=== PATIENT | male | born 1950 | race Caucasian/White ===

== ENCOUNTER 2023-05-22 14:33 | Emergency (ER) | payer MEDICARE ==
[~2023-05-22] VITALS: Ht 180.3 cm; Wt 76.2 kg
[2023-05-22 16:22] LABS: BASOPHILS 0.7 % (0-2); EOSINOPHILS 0.5 % (0-6); HEMATOCRIT 52.4 % (35.0-50.0); HEMOGLOBIN 17.6 g/dL (12.0-18.0); MCH 31.6 (27-36); MCHC 33.6 g/dl (30-36); MCV 94.1 fl (81-99); MONOCYTES 6.7 % (0-12); NEUTROPHILS 74.1 % (39-80); PLATELET COUNT 147 K/uL (140-440); RBC 5.57 M/ul (4.3-5.7); RDW 14.5 (10.5-15.0)
[2023-05-22 16:43] LABS: ALBUMIN 3.6 g/dL (3.4-5.0); ALCOHOL, MEDICAL <3 ng/dL (<3); ALKALINE PHOSPHATASE 61 U/L (46-116); ALT (SGPT) 24 U/L (14-59); ANION GAP 15.4 (7-21); AST (SGOT) 41 U/L (15-37); BILIRUBIN, TOTAL 0.9 ng/dL (0.2-1.0); BUN/CREATININE RATIO 18.47 (6.0-28.6); CALCIUM 9.1 mg/dL (8.5-10.1); CARBON DIOXIDE 26 mmol/L (21-32); CHLORIDE 102 mmol/L (98-107); CREATININE, SERUM 0.92 mg/dL (0.70-1.30); GLOMERULAR FILTRATION RATE,EST 89 mL/min (>60); POTASSIUM 4.4 mmol/L (3.5-5.1); PROTEIN, TOTAL 7.6 g/dL (6.4-8.2); UREA NITROGEN 17 mg/dL (7-18)
[2023-05-22 16:45] LABS: BILIRUBIN, URINE POSITIVE (negative); BLOOD/HGB, URINE TRACE-I (Negative); KETONE, URINE TRACE (Negative); LEUK ESTERASE, URINE NEGATIVE (negative); NITRITE, URINE NEGATIVE (negative)
[2023-05-22 16:54] LABS: BACTERIA, URINE RARE /hpf (negative); CASTS, URINE NONE SEEN \\lpf; CRYSTALS, URINE NONE SEEN (0-1+); EPITHELIAL CELLS, URINE SQUAMOUS 1+ /lpf (0-1+); RED BLOOD CELLS, URINE 0-1 /hpf (0-5)
[2023-05-22 16:55] LABS: COLLECTION TYPE, URINE VOID; REFLEX CULTURE, URINE No (No)
[2023-05-22 18:29] VITALS: BP 174/95
== END 2023-05-22 18:31 | disposition home or self-care (01) ==
LOC: ED 14:33
PROVIDERS: Family Medicine
DX: F03.90 Unspecified dementia, unspecified severity, without behavioral disturbance, psychotic disturbance, mood disturbance, and anxiety (principal); I10 Essential (primary) hypertension; I25.2 Old myocardial infarction; Z95.5 Presence of coronary angioplasty implant and graft
CPT/HCPCS: 36415; 80053; 81001; 85025; 99284; G0480

== ENCOUNTER 2025-02-23 13:43 | Emergency (ER) | payer MEDICARE, OTHER ==
[~2025-02-23] VITALS: Ht 180.3 cm; Wt 68.1 kg
[2025-02-23] MEDS ORDERED: LOSARTAN POTASS50 MG PO (13:54)
[2025-02-23 14:00] LABS: BASOPHILS 0.5 % (0.2-1.2); EOSINOPHILS 0.2 % (0.8-7.0); LYMPHOCYTES 11.4 % (21.8-53.1); MCH 30.2 PG (25.7-32.2); MCHC 33.7 g/dL (32.3-36.5); MCV 89.6 fL (79.0-92.2); MONOCYTES 5.4 % (5.3-12.2); NEUTROPHILS 82.2 % (34.0-67.9); RBC 5.59 M/uL (4.63-6.08)
[2025-02-23 14:49] LABS: ALT (SGPT) 23.0 U/L (14-59); AST (SGOT) 44.0 U/L (15-37); GLOMERULAR FILTRATION RATE,EST 96.0 mL/min (>60); PROTEIN, TOTAL 7.5 g/dL (6.4-8.2); UREA NITROGEN 13.0 mg/dL (7-18)
[2025-02-23] MEDS ORDERED: SODIUM CHLORIDE 0.9% 1,000 ML IV PRN (15:15)
[2025-02-23 16:45] LABS: BLOOD/HGB, URINE SMALL (Negative); KETONE, URINE NEGATIVE (Negative); LEUK ESTERASE, URINE NEGATIVE (negative); NITRITE, URINE NEGATIVE (negative)
[2025-02-23 16:53] LABS: EPITHELIAL CELLS, URINE SQUAMOUS 1+ /lpf (0-1+)
[2025-02-23 16:55] LABS: BACTERIA, URINE NONE SEEN /hpf (negative); CASTS, URINE NONE SEEN \\lpf; CRYSTALS, URINE NONE SEEN (0-1+); REFLEX CULTURE, URINE No (No)
[2025-02-23 18:46] VITALS: BP 143/71
--- NOTE | 2025-02-24 21:33 | EKG ---
[facility] [address] [facility] [place] [address] Signed Sinus rhythm with premature atrial complexes with aberrant conduction Left axis deviation Nonspecific intraventricular block Inferior infarct , age undetermined T wave abnormality, consider lateral ischemia Abnormal ECG No previous ECGs available Confirmed by Jonah Dumont MD () on 02/24/2025 9:33:20 PM Electronically Signed By: JONAH DUMONT MD 02/24/25 213 PATIENT NAME: FAISAL FIGUEROA JR Electrocardiogram DATE OF : 52 PHYSICIAN: JONAH DUMONT MD REPORT #: [id number] REPORT IS CONFIDENTIAL AND NOT TO BE RELEASED WITHOUT AUTHORIZATION
== END 2025-02-23 19:10 | disposition home or self-care (01) ==
LOC: ED 13:43
PROVIDERS: Emergency Medicine
DX: R53.1 Weakness (principal); I10 Essential (primary) hypertension
CPT/HCPCS: 36415; 80053; 81001; 83735; 84484; 85025; 93005; 93010; 99285; J7030

== ENCOUNTER 2025-03-27 11:16 | Emergency (ER) | payer OTHER, MEDICARE ==
[~2025-03-27] VITALS: Ht 180.3 cm; Wt 68.0 kg
--- OUTSIDE RECORDS SUMMARY | ~2025-03-27 | XMS | Continuity of Care Document ---
Demographics + + + | Address | [address] | | | [place] [address] | + + + | Preferred Language | Unknown | + + + | Marital Status | | + + + | Jehovah'S Witness Affiliation | Unknown | + + + | Race | White | + + + | Ethnic Group | Not or | + + + Author + + + | Author | [facility] | + + + | Organization | [facility] | + + + | Address | [address] | | | [place] [address] | + + + | Phone | | + + + Care Team Providers + + + + | Care Rn Pediatric Name | Role | Phone | + + + + Unavailable | Unavailable | + + + + Unavailable | Unavailable | + + + + Allergies No information. Encounters No information. Functional Status No information. Immunizations No information. Medications + + + + | date | description | facility | + + + + | (no date) | [facility] | [facility] | | | | [facility] | + + + + Problems + + + + | date | description | facility | + + + + | 2025-02-23 00:00 | Weakness | [facility] | | | | [facility] | + + + + Procedures No information. Results/Labs +--------+--------+ +---------+--------+---------+ | test | date | facility | value | unit | notes | +--------+--------+ +---------+--------+---------+ + + | Result panel 1 | + + + + + +-------+ + + | Glucose | 2025-02-23 | | 106 | (missing) | (missing) | | Bld-Alex | 13:53:08 | [facility] | | | | + + + +-------+ + + + + | Result panel 2 | + + + + + +---------+ + + | WBC # Bld | 2025-02-23 | | 12.32 | (missing) | (missing) | | Auto | 13:55:08 | [facility] | | | | + + + +---------+ + + + + | Result panel 3 | + + + + + +--------+ + + | Lymphocytes | 2025-02-23 | | 11.4 | (missing) | (missing) | | NFr Bld | 13:55:08 | [facility] | | | | | Auto | [facility] | | | | + + + +--------+ + + + + | Result panel 4 | + + + + + +-------+ + + | Monocytes | 2025-02-23 | | 5.4 | (missing) | (missing) | | NFr Bld Auto | 13:55:08 | [facility] | | | | + + + +-------+ + + + + | Result panel 5 | + + + + + +-------+ + + | Eosinophil | 2025-02-23 | | 0.2 | (missing) | (missing) | | NFr Bld Auto | 13:55:08 | [facility] | | | | + + + +-------+ + + + + | Result panel 6 | + + + + + +-------+ + + | Basophils | 2025-02-23 | | 0.5 | (missing) | (missing) | | NFr Bld Auto | 13:55:08 | [facility] | | | | + + + +-------+ + + + + | Result panel 7 | + + + + + +--------+ + + | RBC # Bld | 2025-02-23 | | 5.59 | (missing) | (missing) | | Auto | 13:55:08 | [facility] | | | | + + + +--------+ + + + + | Result panel 8 | + + + + + +--------+ + + | Hgb | 2025-02-23 | | 16.9 | (missing) | (missing) | | Bld-Alex | 13:55:08 | [facility] | | | | + + + +--------+ + + + + | Result panel 9 | + + + + + +--------+ + + | Hct VFr.DF | 2025-02-23 | | 50.1 | (missing) | (missing) | | Bld Auto | 13:55:08 | [facility] | | | | + + + +--------+ + + + + | Result panel 10 | + + + + + +--------+ + + | RBC Auto | 2025-02-23 | | 89.6 | (missing) | (missing) | | | 13:55:08 | [facility] | | | | + + + +--------+ + + + + | Result panel 11 | + + + + + +--------+ + + | MCH RBC Qn | 2025-02-23 | | 30.2 | (missing) | (missing) | | Auto | 13:55:08 | [facility] | | | | + + + +--------+ + + + + | Result panel 12 | + + + + + +--------+ + + | MCHC RBC | 2025-02-23 | | 33.7 | (missing) | (missing) | | Auto-EntMCnc | 13:55:08 | [facility] | | | | + + + +--------+ + + + + | Result panel 13 | + + + + + +-------+ + + | Platelet # | 2025-02-23 | | 173 | (missing) | (missing) | | Bld Auto | 13:55:08 | [facility] | | | | + + + +-------+ + + + + | Result panel 14 | + + + + + +--------+ + + | Neutrophils | 2025-02-23 | | 82.2 | (missing) | (missing) | | NFr Bld | 13:55:08 | [facility] | | | | | Auto | [facility] | | | | + + + +--------+ + + + + | Result panel 15 | + + + + + +-------+---------+ + | Glucose | 2025-02-23 | | 111 | mg/dL | (missing) | | SerPl-mCnc | 14:17:08 | [facility] | | | | + + + +-------+---------+ + + + | Result panel 16 | + + + + + +------+---------+ + | BUN | 2025-02-23 | | 13 | mg/dL | (missing) | | SerPl-mCnc | 14:17:08 | [facility] | | | | + + + +------+---------+ + + + | Result panel 17 | + + + + + +--------+---------+ + | Creat | 2025-02-23 | | 0.74 | mg/dL | (missing) | | SerPl-mCnc | 14:17:08 | [facility] | | | | + + + +--------+---------+ + + + | Result panel 18 | + + + + + +------+ + + | eGFRcr | 2025-02-23 | | 96 | (missing) | (missing) | | SerPlBld | 14:17:08 | [facility] | | | | | CKD-EPI 2020 | [facility] | | | | + + + +------+ + + + + | Result panel 19 | + + + + + +---------+ + + | BUN/Creat | 2025-02-23 | | 17.56 | (missing) | (missing) | | SerPl | 14:17:08 | [facility] | | | | + + + +---------+ + + + + | Result panel 20 | + + + + + +-------+ + + | Sodium | 2025-02-23 | | 143 | (missing) | (missing) | | SerPl-sCnc | 14:17:08 | [facility] | | | | + + + +-------+ + + + + | Result panel 21 | + + + + + +-------+ + + | Potassium | 2025-02-23 | | 3.9 | (missing) | (missing) | | SerPl-[facility] | 14:17:08 | [facility] | | | | + + + +-------+ + + + + | Result panel 22 | + + + + + +-------+ + + | Chloride | 2025-02-23 | | 103 | (missing) | (missing) | | SerPl-sCnc | 14:17:08 | [facility] | | | | + + + +-------+ + + + + | Result panel 23 | + + + + + +------+ + + | CO2 | 2025-02-23 | | 30 | (missing) | (missing) | | SerPl-sCnc | 14:17:08 | [facility] | | | | + + + +------+ + + + + | Result panel 24 | + + + + + +--------+ + + | Anion Gap | 2025-02-23 | | 13.9 | (missing) | (missing) | | SerPl | 14:17:08 | [facility] | | | | | Calculated.4 | [facility] | [facility] | | | | + + + +--------+ + + + + | Result panel 25 | + + + + + +-------+---------+ + | Calcium | 2025-02-23 | | 9.6 | mg/dL | (missing) | | SerPl-mCnc | 14:17:08 | [facility] | | | | + + + +-------+---------+ + + + | Result panel 26 | + + + + + +-------+---------+ + | Magnesium | 2025-02-23 | | 1.7 | mg/dL | (missing) | | SerPl-mCnc | 14:17:08 | [facility] | | | | + + + +-------+---------+ + + + | Result panel 27 | + + + + + +-------+ + + | Prot | 2025-02-23 | | 7.5 | (missing) | (missing) | | SerPl-mCnc | 14:17:08 | [facility] | | | | + + + +-------+ + + + + | Result panel 28 | + + + + + +-------+ + + | Albumin | 2025-02-23 | | 4.0 | (missing) | (missing) | | Gwendolyn-Alex | 14:17:08 | [facility] | | | | + + + +-------+ + + + + | Result panel 29 | + + + + + +-------+ + + | Globulin | 2025-02-23 | | 3.5 | (missing) | (missing) | | Ser-mCnc | 14:17:08 | [facility] | | | | + + + +-------+ + + + + | Result panel 30 | + + + + + +--------+ + + | | 2025-02-23 | | 1.14 | (missing) | (missing) | | Albumin/Glob | 14:17:08 | [facility] | | | | | SerPl | [facility] | | | | + + + +--------+ + + + + | Result panel 31 | + + + + + +-------+---------+ + | Bilirub | 2025-02-23 | | 0.8 | mg/dL | (missing) | | SerPl-mCnc | 14::08 | [facility] | | | | + + + +-------+---------+ + + + | Result panel 32 | + + + + + +------+ + + | AST | 2025-02-23 | | 44 | (missing) | (missing) | | SerPl-cCnc | 14:17:08 | [facility] | | | | + + + +------+ + + + + | Result panel 33 | + + + + + +------+ + + | ALT | 2025-02-23 | | 23 | (missing) | (missing) | | SerPl-cCnc | 14:17:08 | [facility] | | | | + + + +------+ + + + + | Result panel 34 | + + + + + +------+ + + | ALP | 2025-02-23 | | 74 | (missing) | (missing) | | SerPl-cCnc | 14:17:08 | [facility] | | | | + + + +------+ + + + + | Result panel 35 | + + + + + + + + + | Color Ur | 2025-02-23 | | YELLOW | (missing) | (missing) | | Auto | 16:41:08 | [facility] | | | | + + + + + + + + + | Result panel 36 | + + + + + +---------+ + + | Character | 2025-02-23 | | CLEAR | (missing) | (missing) | | Ur | 16:41:08 | [facility] | | | | + + + +---------+ + + + + | Result panel 37 | + + + + + + + + + | Glucose Ur | 2025-02-23 | | NEGATIVE | (missing) | (missing) | | Ql Strip | 16:41:08 | [facility] | | | | + + + + + + + + + | Result panel 38 | + + + + + + + + + | Bilirub Ur | 2025-02-23 | | NEGATIVE | (missing) | (missing) | | Ql Strip | 16:41:08 | [facility] | | | | + + + + + + + + + | Result panel 39 | + + + + + + + + + | Ketones Ur | 2025-02-23 | | NEGATIVE | (missing) | (missing) | | Ql Strip | 16:41:08 | [facility] | | | | + + + + + + + + + | Result panel 40 | + + + + + +---------+ + + | Sp Gr Ur | 2025-02-23 | | 1.025 | (missing) | (missing) | | Strip | 16:41:08 | [facility] | | | | | | | - | | | | | | | [facility] | | | | + + + +---------+ + + + + | Result panel 41 | + + + + + +---------+ + + | Michel Ur Ql | 2025-02-23 | | SMALL | (missing) | (missing) | | Strip | 16:41:08 | [facility] | | | | + + + +---------+ + + + + | Result panel 42 | + + + + + +-------+ + + | pH Ur Strip | 2025-02-23 | | 6.5 | (missing) | (missing) | | | 16:41:08 | [facility] | | | | + + + +-------+ + + + + | Result panel 43 | + + + + + +------+ + + | Prot Ur | 2025-02-23 | | 30 | (missing) | (missing) | | Strip-mCnc | 16:41:08 | [facility] | | | | + + + +------+ + + + + | Result panel 44 | + + + + + + + + + | | 2025-02-23 | | NORMAL | (missing) | (missing) | | Urobilinogen | 16:41:08 | [facility] | | | | | Ur | [facility]-m[facility]nc | | [facility] | | | | + + + + + + + + + | Result panel 45 | + + + + + + + + + | Nitrite Ur | 2025-02-23 | | NEGATIVE | (missing) | (missing) | | Ql Strip | 16:41:08 | [facility] | | | | + + + + + + + + + | Result panel 46 | + + + + + + + + + | Leukocyte | 2025-02-23 | | NEGATIVE | (missing) | (missing) | | esterase Ur | 16:41:08 | [facility] | | | | | Ql Strip | [facility] | | | | + + + + + + + + + | Result panel 47 | + + + + + +-------+ + + | RBC #/area | 2025-02-23 | | 0-1 | (missing) | (missing) | | UrnS HPF | 16:41:08 | [facility] | | | | + + + +-------+ + + + + | Result panel 48 | + + + + + +-------+ + + | WBC #/area | 2025-02-23 | | 0-1 | (missing) | (missing) | | UrnS HPF | 16:41:08 | [facility] | | | | + + + +-------+ + + + + | Result panel 49 | + + + + + + + + + | Epi Cells | 2025-02-23 | | SQUAMOUS 1+ | (missing) | (missing) | | #/area UrnS | 16:41:08 | [facility] | | | | | HPF [facility] | | | | + + + + + + + + + | Result panel 50 | + + + + + + + + + | Crystals | 2025-02-23 | | NONE SEEN | (missing) | (missing) | | UrnS Micro | 16:41:08 | [facility] | | | | + + + + + + + + + | Result panel 51 | + + + + + + + + + | Bacteria | 2025-02-23 | | NONE SEEN | (missing) | (missing) | | #/area UrnS | 16:41:08 | [facility] | | | | | HPF [facility] | | | | + + + + + + + + + | Result panel 52 | + + + + + + + + + | Casts | 2025-02-23 | | NONE SEEN | (missing) | (missing) | | #/area UrnS | 16:41:08 | [facility] | | | | | LPF [facility] | | | | + + + + + + + + + | Result panel 53 | + + + + + +------+ + + | Bacteria Ur | 2025-02-23 | | No | (missing) | (missing) | | Cult | 16:41:08 | [facility] | | | | + + + +------+ + + + + | Result panel 54 | + + + + + + + + + | Urn Spec | 2025-02-23 | | CLEAN CATCH | (missing) | (missing) | | Collect Meth | 16:41:08 | [facility] | | | | | Ur | | - | | | | | | | [facility] | | | | + + + + + + + + + | Result panel 55 | + + + + + +---------+ + + | Troponin I | 2025-02-23 | | 133.1 | (missing) | (missing) | | SerPl | 18:00:08 | [facility] | | | | | HS-mCnc [facility] | | | | + + + +---------+ + + Social History + + + + | date | description | facility | + + + + | (no date) | Unknown if ever smoked | [facility] | | | [facility] | + + + + Vital Signs + + + +---------+ | date | measurement | value | units | + + + +---------+ | 2025-02-23 00:00 | BMI | 20.9 | kg/m2 | + + + +---------+ | 2025-02-23 00:00 | BP_diastolic | 71 | mmHg | + + + +---------+ | 2025-02-23 00:00 | BP_systolic | 143 | mmHg | + + + +---------+ | 2025-02-23 00:00 | heart_rate | 62 | /min | + + + +---------+ | 2025-02-23 00:00 | height_metric | 180.34 | cm | + + + +---------+ | 2025-02-23 00:00 | height_standard | 71 | in | + + + +---------+ | 2025-02-23 00:00 | o2_saturation | 96 | % | + + + +---------+ | 2025-02-23 00:00 | respiration_rate | 17 | /min | + + + +---------+ | 2025-02-23 00:00 | | 98 | F | | | temperature_standar | | | | | d | | | + + + +---------+ | 2025-02-23 00:00 | weight_metric | 68.101 | kg | + + + +---------+ | 2025-02-23 00:00 | weight_standard | 150.137 | lb | + + + +---------+"
[~2025-03-27 11:16] MED LIST: LOSARTAN POTASS50 MG PO
[2025-03-27 12:14] LABS: BLOOD/HGB, URINE NEGATIVE (Negative); KETONE, URINE NEGATIVE (Negative); LEUK ESTERASE, URINE NEGATIVE (negative); NITRITE, URINE NEGATIVE (negative)
[2025-03-27 12:56] LABS: BASOPHILS 0.8 % (0.2-1.2); EOSINOPHILS 2.2 % (0.8-7.0); LYMPHOCYTES 28.6 % (21.8-53.1); MCH 30.9 PG (25.7-32.2); MCHC 33.7 g/dL (32.3-36.5); MCV 91.8 fL (79.0-92.2); MONOCYTES 8.5 % (5.3-12.2); NEUTROPHILS 59.7 % (34.0-67.9); RBC 5.14 M/uL (4.63-6.08)
[2025-03-27 13:24] LABS: ALT (SGPT) 17.0 U/L (14-59); AST (SGOT) 17.0 U/L (15-37); GLOMERULAR FILTRATION RATE,EST 96.0 mL/min (>60); PROTEIN, TOTAL 7.3 g/dL (6.4-8.2); UREA NITROGEN 13.0 mg/dL (7-18)
[2025-03-27 14:02] VITALS: BP 140/75
--- NOTE | 2025-03-28 22:30 | EKG ---
[facility] [address] [place] [address] Signed Wide QRS rhythm Left axis deviation Left ventricular hypertrophy with QRS widening ( R in aVL , Lamine product ) Possible Lateral infarct , age undetermined Inferior infarct , age undetermined Abnormal ECG When compared with ECG of 23-FEB-2025 13:57, Wide QRS rhythm has replaced Sinus rhythm Confirmed by Jonah Dumont MD () on 03/28/2025 10:30:21 PM Electronically Signed By: JONAH DUMONT MD 03/28/252229 PATIENT NAME: FAISAL FIGUEROA Electrocardiogram DATE OF : 52 PHYSICIAN: JONAH DUMONT MD REPORT #: [id number] REPORT IS CONFIDENTIAL AND NOT TO BE RELEASED WITHOUT AUTHORIZATION
== END 2025-03-27 13:56 | disposition home or self-care (01) ==
LOC: ED 11:16
PROVIDERS: Emergency Medicine
DX: Z04.3 Encounter for examination and observation following other accident (principal); R42 Dizziness and giddiness; I10 Essential (primary) hypertension; W18.30XA Fall on same level, unspecified, initial encounter
CPT/HCPCS: 36415; 70450; 71045; 80053; 81003; 83880; 84484; 85025; 93005; 93010; 99285-25